=== PATIENT | female | born 1935 | race African-American/Black ===

== ENCOUNTER 2017-02-05 18:44 | Emergency (ER) | payer BC ==
[~2017-02-05] VITALS: Ht 170.2 cm; Wt 83.9 kg
[2017-02-05 18:49] VITALS: BP_SYST 138
== END 2017-02-05 20:14 | disposition home or self-care (01) ==
LOC: SED 18:44
DX: S93.402A Sprain of unspecified ligament of left ankle, initial encounter (principal); E11.9 Type 2 diabetes mellitus without complications; I10 Essential (primary) hypertension; Z90.710 Acquired absence of both cervix and uterus; X58.XXXA Exposure to other specified factors, initial encounter; Y93.89 Activity, other specified; Y92.89 Other specified places as the place of occurrence of the external cause; Y99.8 Other external cause status
CPT/HCPCS: 93971; 99284

== ENCOUNTER 2019-03-09 21:08 | Emergency (ER) | payer BC ==
[~2019-03-09] VITALS: Ht 170.2 cm; Wt 81.6 kg
[2019-03-09 21:17] VITALS: BP_SYST 120
--- NOTE | 2019-03-09 21:20 | NUR ---
Patient triaged and placed in waiting room. VSS and patient appears in no acute distress at this time. Accompanied by son, awaiting available bed, and MD notified of need for MSE.
--- NOTE | 2019-03-09 22:53 | NUR ---
Patient was left without being seen.
== END 2019-03-09 22:53 | disposition left against medical advice (07) ==
LOC: SED 21:08
DX: R10.9 Unspecified abdominal pain (principal); Z53.21 Procedure and treatment not carried out due to patient leaving prior to being seen by health care provider